=== PATIENT | male | born 1950 | race African-American/Black ===

== ENCOUNTER 2018-10-29 05:31 | Day surgery (SDC) | payer OTHER ==
[2018-10-27 17:22] VITALS: BMI 31.1
--- NOTE | 2018-10-28 09:18 | PREOPHP ---
DATE OF ADMISSION: 10/29/2018 Scheduled for outpatient surgery 10/29/2018. HISTORY OF PRESENT ILLNESS: The patient is a 68-year-old -[place] male in overall stable health with approximately 1-year history of right groin bulge. He has not had any gastrointestinal symptoms. He does not have genitourinary symptoms, although he does wake 1 to 3 times per night to urinate. He also has an umbilical bulge. He is scheduled to undergo open repair of right inguinal hernia with mesh and repair of umbilical hernia. MEDICATIONS 1. Metformin for diabetes. 2. Aspirin 81 mg daily that he stopped preoperatively. ALLERGIES: NONE. OPERATIONS: None. REVIEW OF SYSTEMS: Hypertension previously on meds; diabetes previously on Insulin, Diffuse arthritis, possibly rheumatoid arthritis especially his knees. He walks using a cane. PHYSICAL EXAMINATION: GENERAL: The patient is 6 feet 3 inches, 260 pounds, well-developed, well- nourished, obese male. HEENT: Within normal limits. LUNGS: Clear. HEART: Regular rhythm. BREASTS: Without masses. ABDOMEN: Obese. There is a reducible right inguinal hernia. The left inguinal canal is intact. There is a small reducible umbilical hernia. Femoral pulses are 2+ bilaterally. Testes and scrotum within normal limits. There is no inguinal lymphadenopathy. RECTAL: Per primary care recently. EXTREMITIES: Without edema. NEUROLOGIC: Physiologic. IMPRESSION: 1. Inguinal hernia. 2. Umbilical hernia. PLAN: I have had a full discussion with the patient regarding the nature of this condition, the nature of the surgery, indications, alternatives, options and risks including bleeding, infection, recurrence despite use of mesh, neuritis or neuralgia of the groin, testicular or scrotal swelling or other abnormality, umbilical deformity, etc. All questions have been answered. He understands and agrees to proceed as planned. Dictated By: CASIE PATEL/ARTHUR Conf#: [id number] DID#: [id number] LILLI
[~2018-10-29] VITALS: Ht 190.5 cm; Wt 113.7 kg
[2018-10-29] MEDS ORDERED: CEFAZOLIN 1 GM/50 ML (PMX) 50 ML IVPB SCH (06:00)
[2018-10-29] MEDS ORDERED: SOD CHLORIDE 0.9% 1,000 ML IV ONE (06:00)
[2018-10-29 06:24] VITALS: Ht 190.5 cm; Wt 113.7 kg
[2018-10-29 06:28] VITALS: BP 164/77; PULSE 79; RESP 18
[2018-10-29] MEDS ORDERED: INSULIN REGULAR, HUMAN 100 UNIT/1 ML 3ML VIAL SC ONE (07:00)
[2018-10-29] MEDS ORDERED: METO-335 ORAL (07:03)
[2018-10-29] MEDS ORDERED: MTF1000T PO (07:03)
[2018-10-29] MEDS ORDERED: OMEG-101 ORAL (07:03)
--- NOTE | 2018-10-29 07:46 | HPN ---
Date/Time of Note Date/Time of Note DATE: 10/29/18 TIME: 07:44 Interval H&P Admission Note Pt. seen H&P reviewed: Systems changes noted below fasting serum glucose 265 BP elevated EKG with ST elevation Has not been taking his HTN meds and insulin Imp. Not stable for surgery so surgery cancelled Patient advised to see his PCP ALLYN - given copies of his labs and EKG. Fully discussed with patient. CASIE CUNNINGHAM October 29, 2018 07:46
--- NOTE | 2018-10-29 18:53 | RADRPT ---
Vent Rate: 84 bpm RR Interval: 712 msec WA Interval: 160 msec QRS Duration: 81 msec QT Interval: 348 msec QTC Interval: 412 msec P-R-T [place]: 67 - 54 - 58 degrees Sinus rhythm...normal P axis, V-rate 50- 99 Probable left atrial enlargement...P >50mS, <-0.10mV V1 ST elevation, consider anterior injury...ST >0.15mV, V1-V5 Electronically Signed By: Abdelrahman Wilcox
== END 2018-10-29 08:08 | disposition home or self-care (01) ==
LOC: SDS 05:31
PROVIDERS: ATTEND Surgery
DX: K40.90 Unilateral inguinal hernia, without obstruction or gangrene, not specified as recurrent (principal); Z53.8 Procedure and treatment not carried out for other reasons; E11.65 Type 2 diabetes mellitus with hyperglycemia; Z79.84 Long term (current) use of oral hypoglycemic drugs; K42.9 Umbilical hernia without obstruction or gangrene; Z79.82 Long term (current) use of aspirin
CPT/HCPCS: 71045; 80053; 82962; 85025; 93005; J1815